=== PATIENT | female | born 1940 | race Caucasian/White ===

== ENCOUNTER 2019-04-06 07:34 | Day surgery (SDC) | payer MEDICARE, BC ==
[~2019-04-06] VITALS: Ht 160 cm; Wt 56.8 kg
[~2019-04-06 07:34] MED LIST: IBUP-1221 PO; TRAM50TA2 PO
[2019-04-06 08:03] VITALS: BP 138/79
[2019-04-06] MEDS ORDERED: LACTATED RINGERS 1,000 ML IV SCH (08:03)
[2019-04-06] MEDS ORDERED: APREPITANT 40 MG CAPSULE PO ONE (08:30)
[2019-04-06] MEDS ORDERED: APREPITANT 40 MG CAPSULE ONE (08:32)
[2019-04-06] MEDS ORDERED: SUCCINYLCHOLINE 20 MG/ML, 10ML ONE (09:34)
[2019-04-06] MEDS ORDERED: PROPOFOL 10 MG/ML, 20ML ONE (09:34)
[2019-04-06] MEDS ORDERED: ROCURONIUM 10MG/ML,5ML ONE (09:34)
[2019-04-06] MEDS ORDERED: DEXAMETHASONE 4 MG/ML, 1ML ONE (09:34)
[2019-04-06] MEDS ORDERED: MIDAZOLAM 1 MG/ML, 5ML ONE (09:34)
[2019-04-06] MEDS ORDERED: PHENYLEPHRINE 10 MG/ML ONE (09:34)
[2019-04-06] MEDS ORDERED: DEXMEDETOMIDINE 200 MCG/2 ML ONE (09:34)
[2019-04-06] MEDS ORDERED: CEFAZOLIN 1,000 MG ONE (09:34)
[2019-04-06] MEDS ORDERED: ONDANSETRON 2MG/ML, 2ML ONE (09:34)
[2019-04-06] MEDS ORDERED: FENTANYL PF 250 MCG/5ML ONE (09:39)
[2019-04-06] MEDS ORDERED: HYDROcodone/APAP 7.5-325MG/15ML UDC PO PRN ×2 (10:30→11:30)
[2019-04-06] MEDS ORDERED: hydrALAzine 20 MG/ML, 1ML IV PRN (10:30)
[2019-04-06] MEDS ORDERED: HALOPERIDOL 5 MG/ML IV PRN (10:30)
[2019-04-06] MEDS ORDERED: ACETAMINOPHEN 325 MG TABLET PO PRN (10:30)
[2019-04-06] MEDS ORDERED: HYDROmorphone 2 MG/ML, 1ML IVPush PRN ×2 (10:30→11:30)
[2019-04-06] MEDS ORDERED: MEPERIDINE/PF 25MG/ML,1ML IVPush PRN (10:30)
[2019-04-06] MEDS ORDERED: FENTANYL PF 100 MCG/2ML IV PRN (10:30)
[2019-04-06] MEDS ORDERED: ACETAMINOPHEN 650 MG/20.3 ML UDC ONE (11:47)
== END 2019-04-06 14:40 | disposition home or self-care (01) ==
LOC: OUT 07:34
PROVIDERS: ATTEND Surgery
DX: E04.2 Nontoxic multinodular goiter (principal); M19.90 Unspecified osteoarthritis, unspecified site; Z87.891 Personal history of nicotine dependence; Z98.890 Other specified postprocedural states; Z82.3 Family history of stroke
CPT/HCPCS: 60220; 88307; J0330; J0690; J1100; J2250; J2370; J2405; J2704; J3010; J7120; J8501; 36415; 84432; 86800; 88311; C1760

== ENCOUNTER 2019-09-15 13:23 | Emergency (ER) | payer MEDICARE, BC ==
[~2019-09-15] VITALS: Ht 160 cm; Wt 55.9 kg
--- NOTE | 2019-09-15 13:46 | NUR ---
PT TO ROOM 29 PER [facility]. PT DROVE 40 MILES AFTER SEEING HER PCP, AND WAS TOLD TO COME TO ED SHE FEELS SOMETHING IS STUCK IN HER THROAT. PT STATES "IT FEELS LIKE I SWALLOWED A GOLFBALL". FEELING HAS GOTTEN WORSE SINCE SHE FIRST NOTICED THIS IN [facility]. PT PLACED INTO GOWN, MONITOR APPLIED AND CALL LIGHT GIVEN. MD IN TO ASSESS PATIENT. PT IN NO ACUTE DISTRESS, CLEARS HER THROAT BUT NO AUDIBLE WHEEZING OR STRIDOR WITH AUSCULTATION.
[2019-09-15] MEDS ORDERED: MAALOX/HYOSCYAMINE/LIDOCAINE 45 ML BTL ONE (14:05)
--- NOTE | 2019-09-15 14:09 | NUR ---
PT CONTINOUSLY CLEARING THROAT. GI COCKTAIL TAKEN INTO PATIENT. MEDICATION EXPLAINED TO PATIENT AND PATIENT GIVEN MEDICATIONS. PT HAS CLEARED HER THROAT FEWER TIMES. AWAITING FURTHER TESTING.
[2019-09-15] MEDS ORDERED: MAALOX/HYOSCYAMINE/LIDOCAINE 45 ML BTL PO ONE (14:30)
--- NOTE | 2019-09-15 14:52 | NUR ---
PT TAKEN TO GET ESOPHAGRAM COMPLETED BY DENILSON. PT AGAIN CLEARING THROAT WITH VERY HARSE FORCE.
--- NOTE | 2019-09-15 15:16 | NUR ---
PT RETURNED TO ED FROM TEST
--- NOTE | 2019-09-15 15:45 | NUR ---
PT RESTING IN BED WITH OCCASIONAL CLEARING OF THROAT.
[2019-09-15] MEDS ORDERED: BENZOCAINE AEROSOL SPRAY 20%, 60ML ONE (16:10)
[2019-09-15] MEDS ORDERED: DIAZEPAM 5 MG TABLET ONE (16:17)
--- NOTE | 2019-09-15 16:25 | NUR ---
Break RN: Pt refused valium at this time, MD Jacobson to bedside to preform rhinolaryngascope.
[2019-09-15] MEDS ORDERED: DIAZEPAM 5 MG TABLET PO ONE (16:30)
[2019-09-15] MEDS ORDERED: DIAZEPAM 5 MG/ML, 10ML VIAL IVPush PRN (16:30)
--- NOTE | 2019-09-15 17:14 | NUR ---
DISCHARGE INSTRUCTIONS GIVEN TO PATIENT. PT VERBALIZES UNDERSTANDING OF ALL INSTRUCTIONS AND FOLLOW UP. PT AMBULATED OUT OF ED PER PEDIS.
[2019-09-15 17:19] VITALS: BP 146/88
== END 2019-09-15 17:21 | disposition home or self-care (01) ==
LOC: ED 13:57
DX: R09.82 Postnasal drip (principal); R13.10 Dysphagia, unspecified
CPT/HCPCS: 74220; 99283; J3490